=== PATIENT | female | born 1990 | race Caucasian/White ===

== ENCOUNTER 2019-06-24 17:32 | Emergency (ER) | payer BC, MEDICAID ==
[~2019-06-24] VITALS: Wt 76.7 kg
[~2019-06-24 17:32] MED LIST: IBUP-1542 PO; IBUP800T48 PO
[2019-06-24 19:51] VITALS: BP 129/78; PULSE 74; RESP 20
[2019-06-24] MEDS ORDERED: IBUPROFEN 800 MG TAB PO ONE (20:00)
== END 2019-06-24 19:50 | disposition home or self-care (01) ==
LOC: FTE 17:32
DX: T83.89XA Other specified complication of genitourinary prosthetic devices, implants and grafts, initial encounter (principal); Y73.2 Prosthetic and other implants, materials and accessory gastroenterology and urology devices associated with adverse incidents
CPT/HCPCS: 81003; 81025; Z7502; Z7610; 99282